=== PATIENT | female | born 1940 | race Caucasian/White ===

== ENCOUNTER 2020-12-19 11:03 | Day surgery (SDC) | payer MEDICARE ==
[~2020-12-19] VITALS: Ht 162.6 cm; Wt 89.4 kg
[2020-12-19] VITALS (9 sets, daily range): BP systolic 91–110; BP diastolic 46–73
[2020-12-19] MEDS ORDERED: normal saline 1,000 ML IV SCH (11:35)
[2020-12-19] MEDS ORDERED: diphenhydrAMINE 25mg capsule PO PRN (11:35)
[2020-12-19] MEDS ORDERED: FURO40TA4 PO (12:09)
[2020-12-19] MEDS ORDERED: ATOR40TA72 PO (12:09)
[2020-12-19] MEDS ORDERED: METF-438 PO (12:09)
[2020-12-19] MEDS ORDERED: FENO145T25 PO (12:09)
[2020-12-19] MEDS ORDERED: METO-395 PO (12:09)
[2020-12-19] MEDS ORDERED: ACAR50TA4 PO (12:09)
[2020-12-19] MEDS ORDERED: PANT40TA54 PO (12:09)
[2020-12-19] MEDS ORDERED: TRAN4TAB25 PO (12:09)
[2020-12-19] MEDS ORDERED: INSU100V9 SUBCUT (12:09)
[2020-12-19] MEDS ORDERED: AMLO5TAB16 PO (12:09)
[2020-12-19] MEDS ORDERED: POTA-197 PO (12:09)
[2020-12-19] MEDS ORDERED: OMEG1CAP13 PO (12:11)
[2020-12-19] MEDS ORDERED: ASPI-1265 PO (12:11)
[2020-12-19 12:43] LABS: BASOPHILS % (AUTO) 0.4 % (0-1); EOSINOPHILS # (AUTO) 0.1 X10'3 (0-0.9); EOSINOPHILS % (AUTO) 1.1 % (0-6); HEMATOCRIT 39.6 % (35.0-45.0); HEMOGLOBIN 13.1 g/dl (12.0-16.0); LYMPHOCYTES # (AUTO) 0.8 X10'3 (1.1-4.8); LYMPHOCYTES % (AUTO) 13.8 % (21-51); MEAN CORPUSCULAR HEMOGLOBIN 30.9 PG (27.0-31.0); MEAN CORPUSCULAR HGB CONC 33.1 g/dL (33.0-36.5); MEAN CORPUSCULAR VOLUME 93.5 FL (78-98); MEAN PLATELET VOLUME 9.4 FL (7.4-10.4); MONOCYTES # (AUTO) 0.4 X10'3 (0-0.9); MONOCYTES % (AUTO) 7.1 % (2-12); NEUTROPHILS # (AUTO) 4.5 X10'3 (1.8-7.7); NEUTROPHILS % (AUTO) 77.6 % (42-75); PLATELET COUNT 224 X10'3 (140-440); RED BLOOD COUNT 4.24 X10'6 (4.20-5.60); RED CELL DISTRIBUTION WIDTH 14.1 % (11.5-14.5); WHITE BLOOD COUNT 5.8 X10'3 (4.5-11.0)
[2020-12-19 13:02] LABS: ALBUMIN 3.1 G/DL (3.4-5.0); ANION GAP 10 (8-16); BLOOD UREA NITROGEN 21 MG/DL (7-18); BUN/CREATININE RATIO 18.1 (6.6-38.0); CALCIUM 8.6 MG/DL (8.5-10.1); CHLORIDE 106 MMOL/L (99-107); CREATININE 1.16 MG/DL (0.40-0.90); GLUCOSE 199 MG/DL (70-104); MAGNESIUM 1.3 MG/DL (1.5-2.4); POTASSIUM 4.1 MMOL/L (3.5-5.1); SODIUM 143 MMOL/L (135-145); TOTAL CARBON DIOXIDE 26.9 MMOL/L (24-32); eGFR 45 ML/MIN
[2020-12-19] MEDS ORDERED: LIDOcaine 1% (10mg/ml)w/preservative injection 20ml MDV ONE ×2 (13:53→14:37)
[2020-12-19] MEDS ORDERED: heparin 1,000unit/ml 10ml vial 10 ML ONE (13:53)
[2020-12-19] MEDS ORDERED: fentaNYL/PF 50MCG/1 ML 2ML syringe ONE (13:53)
[2020-12-19] MEDS ORDERED: midazolam 1 mg/ML 2ml injection ONE (13:53)
[2020-12-19] MEDS ORDERED: iohexol 350 MG/ML 50ML vial IV ONE (13:54)
[2020-12-19] MEDS ORDERED: iohexol 350MG/ML 100ml bottle IV ONE (13:54)
[2020-12-19] MEDS ORDERED: diphenhydrAMINE 50 mg/ml inj ONE (14:21)
[2020-12-19] MEDS ORDERED: ondansetron/PF 4mg/2ml inj IV PRN (15:30)
[2020-12-19] MEDS ORDERED: HYDROcodone/acetaminophen 5mg/325mg tablet PO PRN (15:30)
[2020-12-19] MEDS ORDERED: proCHLORperazine 10 MG/2 ml inj IV PRN (15:30)
[2020-12-19] MEDS ORDERED: HYDROcodone/acetaminophen 10/325mg tab PO PRN (15:30)
[2020-12-19] MEDS ORDERED: normal saline 1000ml 1,000 ML IV SCH (15:30)
[2020-12-19] MEDS ORDERED: acetaminophen 325mg tablet PO PRN (15:30)
== END 2020-12-19 18:25 | disposition home or self-care (01) ==
LOC: SSTAY O 11:03
PROVIDERS: ATTEND Internal Medicine Cardiovascular Disease
DX: R53.83 Other fatigue (principal); R07.89 Other chest pain; R06.09 Other forms of dyspnea; E78.5 Hyperlipidemia, unspecified; I10 Essential (primary) hypertension; E11.9 Type 2 diabetes mellitus without complications; I42.9 Cardiomyopathy, unspecified; F17.210 Nicotine dependence, cigarettes, uncomplicated; Z98.890 Other specified postprocedural states; Z90.710 Acquired absence of both cervix and uterus; Z95.0 Presence of cardiac pacemaker; Z79.82 Long term (current) use of aspirin; Z79.899 Other long term (current) drug therapy; Z79.4 Long term (current) use of insulin; Z88.5 Allergy status to narcotic agent
CPT/HCPCS: 36415; 80048; 82948; 83735; 85025; 85610; 93005; 93458; 99152; 99153; C1760; C1769; C1894; J1200; J1644; J2001; J2250; J3010; J7030; Q0163; Q9967; A4620; A6258

== ENCOUNTER 2020-12-30 08:12 | Day surgery (SDC) | payer MEDICARE ==
[2020-12-30] VITALS (10 sets, daily range): BP systolic 79–101; BP diastolic 49–63
[~2020-12-30] VITALS: Ht 165.1 cm; Wt 91.2 kg
[~2020-12-30 08:12] MED LIST: ACAR50TA4 PO; AMLO5TAB16 PO; ASPI-1265 PO; ATOR40TA72 PO; FENO145T25 PO; FURO40TA4 PO; INSU100V9 SUBCUT; METF-438 PO; METO-395 PO; OMEG1CAP13 PO; PANT40TA54 PO; POTA-197 PO; TRAN4TAB25 PO
[2020-12-30] MEDS ORDERED: vancomycin/NS 1 GM ADD-VANTAGE 250 ML X 1 DOSE IV ONE (08:45)
[2020-12-30] MEDS ORDERED: normal saline 1000ml 1,000 ML IV SCH (08:45)
[2020-12-30] MEDS ORDERED: cefazolin/dext.iso 2gm/100ml 100 ML IV ONE (08:45)
[2020-12-30] MEDS ORDERED: ACAR100T PO (08:56)
[2020-12-30] MEDS ORDERED: CHOL10006 PO (08:56)
[2020-12-30] MEDS ORDERED: METF-950 PO (08:58)
[2020-12-30 10:01] LABS: BASOPHILS # (AUTO) 0.1 X10'3 (0-0.2); BASOPHILS % (AUTO) 0.7 % (0-1); EOSINOPHILS # (AUTO) 0.1 X10'3 (0-0.9); EOSINOPHILS % (AUTO) 1.4 % (0-6); HEMATOCRIT 36.1 % (35.0-45.0); HEMOGLOBIN 11.8 g/dl (12.0-16.0); LYMPHOCYTES % (AUTO) 13.8 % (21-51); MEAN CORPUSCULAR HEMOGLOBIN 30.7 PG (27.0-31.0); MEAN CORPUSCULAR HGB CONC 32.5 g/dL (33.0-36.5); MEAN CORPUSCULAR VOLUME 94.5 FL (78-98); MONOCYTES # (AUTO) 0.5 X10'3 (0-0.9); MONOCYTES % (AUTO) 6.6 % (2-12); NEUTROPHILS # (AUTO) 5.8 X10'3 (1.8-7.7); NEUTROPHILS % (AUTO) 77.5 % (42-75); PLATELET COUNT 401 X10'3 (140-440); RED BLOOD COUNT 3.82 X10'6 (4.20-5.60); RED CELL DISTRIBUTION WIDTH 14.3 % (11.5-14.5); WHITE BLOOD COUNT 7.5 X10'3 (4.5-11.0)
[2020-12-30 10:08] LABS: ALBUMIN 2.9 G/DL (3.4-5.0); ANION GAP 6 (8-16); BLOOD UREA NITROGEN 22 MG/DL (7-18); CALCIUM 8.4 MG/DL (8.5-10.1); CHLORIDE 107 MMOL/L (99-107); CREATININE 1.22 MG/DL (0.40-0.90); GLUCOSE 78 MG/DL (70-104); MAGNESIUM 1.3 MG/DL (1.5-2.4); POTASSIUM 4.6 MMOL/L (3.5-5.1); SODIUM 143 MMOL/L (135-145); TOTAL CARBON DIOXIDE 29.7 MMOL/L (24-32); eGFR 43 ML/MIN
[2020-12-30] MEDS ORDERED: vancomycin 1,000mg inj ONE (11:21)
[2020-12-30] MEDS ORDERED: fentaNYL/PF 50MCG/1 ML 2ML syringe ONE (11:21)
[2020-12-30] MEDS ORDERED: midazolam 1 mg/ML 2ml injection ONE ×2 (11:21→13:39)
[2020-12-30] MEDS ORDERED: LIDOcaine 1% W/epiNEPHrine 1:100,000 20ml vial ONE (12:07)
[2020-12-30] MEDS ORDERED: iohexol 350 MG/ML 50ML vial IV ONE ×3 (12:15→13:10)
[2020-12-30] MEDS ORDERED: magnesium 1 GM/2 ML inj ONE (12:20)
[2020-12-30] MEDS ORDERED: HYDROcodone/acetaminophen 5mg/325mg tablet PO PRN (15:00)
[2020-12-30] MEDS ORDERED: HYDROcodone/acetaminophen 10/325mg tab PO PRN (15:00)
== END 2020-12-30 17:00 | disposition home or self-care (01) ==
LOC: SSTAY O 08:12
PROVIDERS: ATTEND Internal Medicine Cardiovascular Disease
DX: Z45.02 Encounter for adjustment and management of automatic implantable cardiac defibrillator (principal); T82.120A Displacement of cardiac electrode, initial encounter; I44.7 Left bundle-branch block, unspecified; I42.9 Cardiomyopathy, unspecified; E11.9 Type 2 diabetes mellitus without complications; I10 Essential (primary) hypertension; E78.5 Hyperlipidemia, unspecified; Z90.710 Acquired absence of both cervix and uterus; Z98.890 Other specified postprocedural states; Z79.899 Other long term (current) drug therapy; Z79.82 Long term (current) use of aspirin; Z88.2 Allergy status to sulfonamides; Z88.5 Allergy status to narcotic agent; Z87.891 Personal history of nicotine dependence; Y83.8 Other surgical procedures as the cause of abnormal reaction of the patient, or of later complication, without mention of misadventure at the time of the procedure; Y92.89 Other specified places as the place of occurrence of the external cause
CPT/HCPCS: 33225; 33264; 36415; 71045; 80048; 83735; 85025; 85610; 93005; 99152; 99153; C1769; C1882; C1887; C1894; C1900; J2250; J3010; J3370; J3475; J7030; Q9967; 33263; A4565; A4620; A6258

== ENCOUNTER 2021-01-29 09:41 | Emergency (ER) | payer MEDICARE ==
[~2021-01-29] VITALS: Ht 165.1 cm; Wt 90.9 kg
[~2021-01-29 09:41] MED LIST changes: +ACAR100T PO; -ACAR50TA4 PO; -AMLO5TAB16 PO; +CHOL10006 PO; +METF-950 PO
[2021-01-29 10:09] VITALS: BP 105/63
[2021-01-29] MEDS ORDERED: AZIT250T PO (11:40)
== END 2021-01-29 12:11 | disposition home or self-care (01) ==
LOC: ER 09:42
DX: J44.1 Chronic obstructive pulmonary disease with (acute) exacerbation (principal); F17.210 Nicotine dependence, cigarettes, uncomplicated; Z88.5 Allergy status to narcotic agent; Z79.899 Other long term (current) drug therapy; Z20.822 Contact with and (suspected) exposure to COVID-19
CPT/HCPCS: 71045; 87635; 93005; 99285; C9803

== ENCOUNTER 2021-02-21 05:04 | Inpatient (IN) | payer MEDICARE ==
[~2021-02-21] VITALS: Ht 170.2 cm; Wt 103.9 kg
[~2021-02-21 05:04] MED LIST changes: +AZIT250T PO; +METF-1203 PO; -METF-950 PO
[2021-02-21] MEDS ORDERED: FENTANYL-0.9 % NACL/PF 100 ML IV PRN (05:20)
[2021-02-21] MEDS ORDERED: propofol 1000mg/100ml bottle 100 ML IV SCH (05:20)
[2021-02-21] MEDS ORDERED: fentaNYL/PF 50MCG/1 ML 2ML syringe IV PRN (05:20)
[2021-02-21 05:24] LABS: ABG BASE EXCESS -8.1 mmol/L (-2.0-2.0); ABG HCO3 24.4 mmol/L (22.0-26.0); ABG OXYGEN SATURATION 89.3 % (94-97); ABG PCO2 (T) 88.4 mmHg (32.0-45.0); ABG PO2 (T) 74.7 mmHg (75.0-100.0); ALLEN'S TEST POSITIVE; FCOHb 2.1 % (0.0-3.9); FMetHb 0.1 % (0.0-1.5); FO2Hb 87.3 % (94-97); PATIENT TEMPERATURE 36.1; PEEP 5 cm H2O; RESPIRATORY RATE 20 b/min; TIDAL VOLUME 450 mL; TOTAL HEMOGLOBIN 13.2 G/dl (12.0-16.0)
[2021-02-21] MEDS ORDERED: propofol 1000mg/100ml bottle 100 ML IV ONE (05:25)
--- NOTE | 2021-02-21 05:26 | NUR ---
pt intubated with 20mg etomidate, 80mg rocuronium @ 0508. mac 3 via ETT 8.0, 25cm at gum. OG placed as well, cxr ordered. central line started by dr sparks.
[2021-02-21 05:37] LABS: BASOPHILS # (AUTO) 0.1 X10'3 (0-0.2); BASOPHILS % (AUTO) 0.6 % (0-1); EOSINOPHILS # (AUTO) 0.2 X10'3 (0-0.9); EOSINOPHILS % (AUTO) 1.9 % (0-6); HEMATOCRIT 39.8 % (35.0-45.0); HEMOGLOBIN 12.5 g/dl (12.0-16.0); LYMPHOCYTES # (AUTO) 4.9 X10'3 (1.1-4.8); MEAN CORPUSCULAR HEMOGLOBIN 30.6 PG (27.0-31.0); MEAN CORPUSCULAR HGB CONC 31.4 g/dL (33.0-36.5); MEAN CORPUSCULAR VOLUME 97.5 FL (78-98); MEAN PLATELET VOLUME 9.5 FL (7.4-10.4); MONOCYTES # (AUTO) 0.8 X10'3 (0-0.9); MONOCYTES % (AUTO) 6.8 % (2-12); NEUTROPHILS # (AUTO) 5.6 X10'3 (1.8-7.7); NEUTROPHILS % (AUTO) 48.7 % (42-75); PLATELET COUNT 363 X10'3 (140-440); RED BLOOD COUNT 4.08 X10'6 (4.20-5.60); RED CELL DISTRIBUTION WIDTH 14.9 % (11.5-14.5); WHITE BLOOD COUNT 11.6 X10'3 (4.5-11.0)
[2021-02-21] MEDS ORDERED: normal saline 1000ml 1,000 ML IV ONE (05:40)
[2021-02-21 05:48] LABS: ALANINE AMINOTRANSFERASE 23 U/L (12-78); ALBUMIN/GLOBULIN RATIO 0.8 (1.1-1.5); ALKALINE PHOSPHATASE 48 IU/L (46-116); ANION GAP 8 (8-16); ASPARTATE AMINO TRANSFERASE 32 U/L (10-37); BILIRUBIN,TOTAL 0.2 MG/DL (0.1-1.0); BLOOD UREA NITROGEN 29 MG/DL (7-18); CALCIUM 8.4 MG/DL (8.5-10.1); CHLORIDE 107 MMOL/L (99-107); CREATININE 1.71 MG/DL (0.40-0.90); GLUCOSE 296 MG/DL (70-104); POTASSIUM 4.6 MMOL/L (3.5-5.1); SODIUM 144 MMOL/L (135-145); TOTAL CARBON DIOXIDE 29.5 MMOL/L (24-32); TOTAL PROTEIN 6.6 G/DL (6.4-8.2); eGFR 29 ML/MIN
[2021-02-21] MEDS ORDERED: ipratropium/albuterol 3ml nebule NEB STA (05:52)
[2021-02-21 05:55] LABS: TRIGLYCERIDES 149 MG/DL (20-135)
[2021-02-21] MEDS: FENTANYL-0.9 % NACL/PF 100 ML IV PRN ×4 (06:22→22:56)
[2021-02-21] MEDS ORDERED: furosemide 10 MG/1 ML 10ml inj IV ONE (06:30)
[2021-02-21] MEDS ORDERED: NOREPINEPHRINE BITARTRATE/D5W 250 ML IV PRN (06:35)
[2021-02-21] MEDS ORDERED: midazolam 1 mg/ML 2ml injection IV ONE (06:55)
[2021-02-21] MEDS ORDERED: ketamine 50 mg/ml 10ml vial ONE (07:10)
[2021-02-21] MEDS ORDERED: CefTRIAXone/D5W-Rocephin 1gm 50 ML IV ONE (07:20)
[2021-02-21] MEDS: NORepinephrine 8mg/ 250ml NS 250 ML IV PRN ×4 (07:27→22:54)
[2021-02-21] MEDS ORDERED: ketamine 50 mg/ml 10ml vial IM ONE (07:55)
[2021-02-21] MEDS: midazolam 100mg in NS 100ml 100 ML IV PRN ×2 (09:14→23:31)
--- NOTE | 2021-02-21 10:11 | NUR ---
Jory (Pt's Daughter) [phone] Sarah (Pt's Daughter) [phone] Pt's daughter would like to be informed, when mother has a bed upstairs.
[2021-02-21] MEDS ORDERED: aspirin 300mg supp.rect RC ONE (10:35)
[2021-02-21] MEDS: normal saline 1000ml 1,000 ML IV SCH (11:50)
[2021-02-21] MEDS ORDERED: potassium Cl 20 mEq SR tablet PO PRN ×2 (11:50)
[2021-02-21] MEDS: K, MAG and/or Phos replacement - Verify level? MC SCH (11:50)
[2021-02-21] MEDS ORDERED: Neutra Phos packet PO PRN (11:50)
[2021-02-21] MEDS ORDERED: sodium phosphate inj. 30 MMOL in dextrose 5%-water 250 ML IV PRN (11:50)
[2021-02-21] MEDS ORDERED: sodium phosphate inj. 15 MMOL in dextrose 5%-water 250 ML IV PRN (11:50)
[2021-02-21] MEDS ORDERED: ondansetron/PF 4mg/2ml inj IV PRN (11:50)
[2021-02-21] MEDS ORDERED: magnesium hydroxide 30ml (MOM) UD suspension PO PRN (11:50)
[2021-02-21] MEDS ORDERED: LIDOcaine 2% 10ml TOPICAL JELLY (Urojet) TP ONE (11:50)
[2021-02-21] MEDS ORDERED: magnesium Cl slow-release 64mg tablet PO PRN (11:50)
[2021-02-21] MEDS ORDERED: magnesium 2GM in 50ml NS 50 ML IV PRN (11:50)
[2021-02-21] MEDS ORDERED: heparin 10,000 units/1 ML INJ IV PRN (12:20)
[2021-02-21] MEDS ORDERED: heparin 10,000 units/1 ML INJ IV ONE ×2 (12:20→12:25)
[2021-02-21] MEDS: heparin 25,000 UNIT/250ml bag 250 ML IV SCH ×2 (12:38→20:45)
[2021-02-21 12:48] LABS: HEMATOCRIT 35.7 % (35.0-45.0); MEAN CORPUSCULAR HEMOGLOBIN 30.6 PG (27.0-31.0)
[2021-02-21] MEDS ORDERED: FLUT1BLS16 INH (12:48)
[2021-02-21] MEDS ORDERED: IPRA3AMP31 NEB (12:48)
[2021-02-21 12:50] LABS: BASOPHILS % (AUTO) 0.2 % (0-1); EOSINOPHILS % (AUTO) 0.1 % (0-6); HEMOGLOBIN 11.8 g/dl (12.0-16.0); LYMPHOCYTES % (AUTO) 9.3 % (21-51); MEAN CORPUSCULAR VOLUME 92.6 FL (78-98); MEAN PLATELET VOLUME 8.9 FL (7.4-10.4); MONOCYTES # (AUTO) 0.7 X10'3 (0-0.9); MONOCYTES % (AUTO) 6.6 % (2-12); NEUTROPHILS # (AUTO) 9.2 X10'3 (1.8-7.7); NEUTROPHILS % (AUTO) 83.8 % (42-75); PLATELET COUNT 356 X10'3 (140-440); RED BLOOD COUNT 3.86 X10'6 (4.20-5.60); RED CELL DISTRIBUTION WIDTH 14.2 % (11.5-14.5)
[2021-02-21 13:36] LABS: D-DIMER 2.36 MG/L FEU (0-0.50); PARTIAL THROMBOPLASTIN TIME 24 SECONDS (22-32)
[2021-02-21] MEDS: ipratropium/albuterol 3ml nebule NEB PRN (14:44)
[2021-02-21 15:05] LABS: ABG BASE EXCESS -0.2 mmol/L (-2.0-2.0); ABG HCO3 24.4 mmol/L (22.0-26.0); ABG OXYGEN SATURATION 92.7 % (94-97); ABG PCO2 (T) 41.1 mmHg (32.0-45.0); ABG PO2 (T) 67.8 mmHg (75.0-100.0); ALLEN'S TEST POSITIVE; FCOHb 0.4 % (0.0-3.9); FMetHb 0.1 % (0.0-1.5); FO2Hb 92.2 % (94-97); PATIENT TEMPERATURE 37.7; PEEP 5 cm H2O; RESPIRATORY RATE 22 b/min; TIDAL VOLUME 474 mL; TOTAL HEMOGLOBIN 11.8 G/dl (12.0-16.0)
[2021-02-21] MEDS: vasopressin inj. 40 UNIT in normal saline 50ml IV soln 38 ML IV SCH (15:15)
[2021-02-21] MEDS ORDERED: albumin (Human) 5% 250ml 250 ML IV ONE (15:15)
[2021-02-21] MEDS ORDERED: PERFLUTREN PROTEIN-A MICROSPHR (Optison) 0.22 MG/ML 3ML VIAL IV ONE (15:20)
[2021-02-21] MEDS ORDERED: vancomycin/NS 1 GM ADD-VANTAGE 250 ML IV ONE (15:55)
[2021-02-21] MEDS ORDERED: vancomycin/NS 1 GM ADD-VANTAGE 250 ML X 1 DOSE IV PRN (16:00)
[2021-02-21] MEDS ORDERED: furosemide 20 MG/2 ML vial IV ONE ×2 (17:00→21:00)
[2021-02-21] MEDS ORDERED: rocuronium 10mg/ml inj IV ONE (17:00)
[2021-02-21] MEDS ORDERED: etomidate 2mg/ml inj. ONE (17:00)
[2021-02-21] MEDS: piperacillin/tazo 3.375gm/50ml 50 ML IV SCH (17:36)
[2021-02-21 17:54] VITALS: BP 115/75
--- NOTE | 2021-02-21 18:30 | NUR ---
Patient in room ICU 2043. I have received report from Darian STATON and had the opportunity to ask questions and assume patient care.
[2021-02-21 19:00] VITALS: BP 117/76
[2021-02-21 20:00] VITALS: BP 98/65
[2021-02-21] MEDS: docusate sod 100mg capsule PO SCH (20:46)
[2021-02-21] MEDS: sennosides/docusate sodium tablet PO SCH (20:48)
[2021-02-21 21:00] VITALS: BP 118/73
[2021-02-21 22:00] VITALS: BP 115/62
[2021-02-21 23:00] VITALS: BP 87/55
[2021-02-21] MEDS: acetaminophen 325mg tablet PO PRN (23:58)
[2021-02-22] VITALS (23 sets, daily range): BP systolic 87–114; BP diastolic 50–80
[2021-02-22] MEDS: piperacillin/tazo 3.375gm/50ml 50 ML IV SCH ×3 (00:19→15:46)
[2021-02-22] MEDS: phenylephrine inj 50 MG in normal saline 250ml IV soln 245 ML IV PRN ×2 (00:19→04:09)
[2021-02-22] MEDS: NORepinephrine 8mg/ 250ml NS 250 ML IV PRN ×2 (00:35→19:57)
[2021-02-22] MEDS: normal saline 1000ml 1,000 ML IV SCH ×2 (01:32→15:15)
[2021-02-22] MEDS: VANCOMYCIN LEVEL IV SCH (03:00)
[2021-02-22 03:11] LABS: BASOPHILS # (AUTO) 0.1 X10'3 (0-0.2); BASOPHILS % (AUTO) 0.9 % (0-1); EOSINOPHILS # (AUTO) 0.1 X10'3 (0-0.9); HEMATOCRIT 35.8 % (35.0-45.0); LYMPHOCYTES # (AUTO) 0.6 X10'3 (1.1-4.8); LYMPHOCYTES % (AUTO) 5.2 % (21-51); MEAN CORPUSCULAR HEMOGLOBIN 30.8 PG (27.0-31.0); MEAN CORPUSCULAR HGB CONC 33.6 g/dL (33.0-36.5); MEAN CORPUSCULAR VOLUME 91.6 FL (78-98); MEAN PLATELET VOLUME 9.1 FL (7.4-10.4); MONOCYTES % (AUTO) 8.3 % (2-12); NEUTROPHILS # (AUTO) 10.4 X10'3 (1.8-7.7); NEUTROPHILS % (AUTO) 84.6 % (42-75); PLATELET COUNT 277 X10'3 (140-440); RED BLOOD COUNT 3.91 X10'6 (4.20-5.60); RED CELL DISTRIBUTION WIDTH 14.3 % (11.5-14.5); WHITE BLOOD COUNT 12.3 X10'3 (4.5-11.0)
[2021-02-22 03:15] LABS: ABG BASE EXCESS -3.2 mmol/L (-2.0-2.0); ABG HCO3 21.4 mmol/L (22.0-26.0); ABG OXYGEN SATURATION 94.8 % (94-97); ABG PCO2 (T) 39.5 mmHg (32.0-45.0); ABG PO2 (T) 83.8 mmHg (75.0-100.0); ALLEN'S TEST POSITIVE; FCOHb 0.2 % (0.0-3.9); FMetHb 0.2 % (0.0-1.5); FO2Hb 94.4 % (94-97); PATIENT TEMPERATURE 38.7; PEEP 5 cm H2O; RESPIRATORY RATE 22 b/min; TIDAL VOLUME 450 mL; TOTAL HEMOGLOBIN 12.6 G/dl (12.0-16.0)
[2021-02-22 03:23] LABS: ALANINE AMINOTRANSFERASE 30 U/L (12-78); ALBUMIN 2.6 G/DL (3.4-5.0); ALBUMIN/GLOBULIN RATIO 0.7 (1.1-1.5); ALKALINE PHOSPHATASE 41 IU/L (46-116); ANION GAP 16 (8-16); ASPARTATE AMINO TRANSFERASE 41 U/L (10-37); BILIRUBIN,TOTAL 0.5 MG/DL (0.1-1.0); BLOOD UREA NITROGEN 30 MG/DL (7-18); CALCIUM 7.7 MG/DL (8.5-10.1); CHLORIDE 106 MMOL/L (99-107); GLUCOSE 213 MG/DL (70-104); MAGNESIUM 1.5 MG/DL (1.5-2.4); PHOSPHORUS 4.3 MG/DL (2.3-4.5); POTASSIUM 4.3 MMOL/L (3.5-5.1); SODIUM 145 MMOL/L (135-145); TOTAL PROTEIN 6.2 G/DL (6.4-8.2); TRIGLYCERIDES 123 MG/DL (20-135); VANCOMYCIN,TROUGH 9.3 UG/ML (6.0-14.0); eGFR 34 ML/MIN
[2021-02-22] MEDS ORDERED: glucagon, human recombinant 1mg kit SUBCUT PRN (05:00)
[2021-02-22] MEDS ORDERED: dextrose ORAL solution 15 GM/59 ML bottle PO PRN ×2 (05:00)
[2021-02-22] MEDS ORDERED: dextrose 50%-water 50ml dispensing syringe IV PRN ×2 (05:00)
--- NOTE | 2021-02-22 06:23 | NUR ---
Problems reprioritized. Patient report given, questions answered & plan of care reviewed with Darian STATON.
[2021-02-22] MEDS: FENTANYL-0.9 % NACL/PF 100 ML IV PRN (07:08)
[2021-02-22] MEDS: pantoprazole 40 MG vial IV SCH (07:32)
[2021-02-22] MEDS: heparin, porcine 5000 units/ml vial SQ SCH ×2 (07:32→19:54)
[2021-02-22] MEDS: docusate sod 100mg capsule PO SCH (07:35)
[2021-02-22] MEDS: K, MAG and/or Phos replacement - Verify level? MC SCH (07:36)
[2021-02-22] MEDS: mineral oil/petrolatum ophthal oint EACHEYE SCH ×3 (07:40→19:55)
[2021-02-22] MEDS ORDERED: vancomycin/NS 1 GM ADD-VANTAGE 250 ML X 1 DOSE IV ONE (07:50)
[2021-02-22] MEDS: ipratropium/albuterol 3ml nebule NEB PRN ×3 (07:51→16:49)
[2021-02-22] MEDS ORDERED: PERFLUTREN PROTEIN-A MICROSPHR (Optison) 0.22 MG/ML 3ML VIAL IV ONE (08:00)
[2021-02-22] MEDS: docusate sodium 100mg/10ml UD cup PO SCH ×2 (08:36→19:54)
[2021-02-22] MEDS ORDERED: FLU VACC QS2021-22(6MOS UP)/PF 60 MCG/0.5 ML SYRINGE IM ONE (09:00)
[2021-02-22] MEDS ORDERED: bumetanide 0.25mg/ml 4ml vial IV ONE (10:00)
[2021-02-22] MEDS: vasopressin inj. 40 UNIT in normal saline 50ml IV soln 38 ML IV SCH (10:33)
[2021-02-22] MEDS: albumin (human) 25% 100 ML IV solution IV SCH ×2 (11:00→15:47)
[2021-02-22] MEDS: furosemide 40mg/4ml inj IV SCH ×2 (11:42→16:21)
--- NOTE | 2021-02-22 11:54 | NUR ---
Initial: Pt admitted w/ respiratory failure and subsequently intubated and sedated. TF recs below for it pt requires prolonged intubation. IF pt extubated, recommend CCHO diet as pt w/ hx of DM and admitting BG 296mg/dL LBM not known. Will continue to monitor and make recommendations as appropriate. Recs: 1. IF prolonged intubation, Continuous TF using Vital High Protein at 65ml/hr 2. IF TF, Additional water flush 100ml Q4H 3. IF TF, PALB QM/Th; daily wts 4. Routine bowel care 5. Upon extubation, advance to CCHO diet as tolerated Addendum: 02/22/21 at [address] Amended: Links added.
[2021-02-22] MEDS ORDERED: albumin (Human) 5% 250ml 250 ML IV ONE ×2 (16:36→16:40)
[2021-02-22] MEDS: bumetanide 0.25mg/ml 4ml vial IV SCH (19:55)
[2021-02-22] MEDS: insulin Lispro (HumaLOG) vial - multi-dose SQ SCH (20:02)
[2021-02-22] MEDS: insulin glargine (Lantus) pen - multi-dose SQ SCH (20:03)
[2021-02-22] MEDS: sennosides/docusate sodium tablet PO SCH (20:04)
[2021-02-22] MEDS: acetaminophen 325mg tablet PO PRN (22:55)
[2021-02-23] VITALS (24 sets, daily range): BP systolic 91–124; BP diastolic 61–86
[2021-02-23] MEDS: piperacillin/tazo 3.375gm/50ml 50 ML IV SCH ×4 (00:06→23:43)
[2021-02-23] MEDS: vasopressin inj. 40 UNIT in normal saline 50ml IV soln 38 ML IV SCH (00:09)
[2021-02-23] MEDS: FENTANYL-0.9 % NACL/PF 100 ML IV PRN ×4 (00:11→23:43)
[2021-02-23] MEDS: mineral oil/petrolatum ophthal oint EACHEYE SCH ×4 (02:49→20:02)
[2021-02-23] MEDS: VANCOMYCIN LEVEL IV SCH (02:49)
[2021-02-23] MEDS: NORepinephrine 8mg/ 250ml NS 250 ML IV PRN ×4 (02:50→17:25)
[2021-02-23] MEDS: midazolam 100mg in NS 100ml 100 ML IV PRN (02:50)
[2021-02-23] MEDS: phenylephrine inj 50 MG in normal saline 250ml IV soln 245 ML IV PRN (02:51)
[2021-02-23] MEDS: insulin Lispro (HumaLOG) vial - multi-dose SQ SCH ×4 (02:59→20:18)
[2021-02-23] MEDS: normal saline 1000ml 1,000 ML IV SCH ×2 (03:45→17:10)
[2021-02-23 04:08] LABS: ABG BASE EXCESS -0.6 mmol/L (-2.0-2.0); ABG HCO3 24.6 mmol/L (22.0-26.0); ABG OXYGEN SATURATION 93.1 % (94-97); ABG PCO2 (T) 44.8 mmHg (32.0-45.0); ABG PO2 (T) 74.9 mmHg (75.0-100.0); ALLEN'S TEST POSITIVE; FCOHb 0.3 % (0.0-3.9); FMetHb 0.4 % (0.0-1.5); FO2Hb 92.4 % (94-97); PATIENT TEMPERATURE 37.9; PEEP 5 cm H2O; RESPIRATORY RATE 20 b/min; TIDAL VOLUME 450 mL; TOTAL HEMOGLOBIN 11.6 G/dl (12.0-16.0)
[2021-02-23 04:11] LABS: BASOPHILS % (AUTO) 0.5 % (0-1); EOSINOPHILS % (AUTO) 0.6 % (0-6); HEMATOCRIT 33.6 % (35.0-45.0); LYMPHOCYTES # (AUTO) 0.9 X10'3 (1.1-4.8); LYMPHOCYTES % (AUTO) 10.2 % (21-51); MEAN CORPUSCULAR HEMOGLOBIN 30.4 PG (27.0-31.0); MEAN CORPUSCULAR HGB CONC 32.7 g/dL (33.0-36.5); MEAN CORPUSCULAR VOLUME 93.1 FL (78-98); MEAN PLATELET VOLUME 9.8 FL (7.4-10.4); MONOCYTES # (AUTO) 0.7 X10'3 (0-0.9); MONOCYTES % (AUTO) 8.3 % (2-12); NEUTROPHILS % (AUTO) 80.4 % (42-75); PLATELET COUNT 215 X10'3 (140-440); RED BLOOD COUNT 3.61 X10'6 (4.20-5.60); RED CELL DISTRIBUTION WIDTH 14.2 % (11.5-14.5); WHITE BLOOD COUNT 8.7 X10'3 (4.5-11.0)
[2021-02-23 04:24] LABS: ALANINE AMINOTRANSFERASE 32 U/L (12-78); ALKALINE PHOSPHATASE 38 IU/L (46-116); ANION GAP 13 (8-16); ASPARTATE AMINO TRANSFERASE 33 U/L (10-37); BILIRUBIN,TOTAL 0.8 MG/DL (0.1-1.0); BLOOD UREA NITROGEN 25 MG/DL (7-18); BUN/CREATININE RATIO 16.6 (6.6-38.0); CALCIUM 8.2 MG/DL (8.5-10.1); CHLORIDE 110 MMOL/L (99-107); CREATININE 1.51 MG/DL (0.40-0.90); GLUCOSE 225 MG/DL (70-104); MAGNESIUM 1.6 MG/DL (1.5-2.4); PHOSPHORUS 3.5 MG/DL (2.3-4.5); POTASSIUM 3.4 MMOL/L (3.5-5.1); SODIUM 149 MMOL/L (135-145); TOTAL CARBON DIOXIDE 26.5 MMOL/L (24-32); TOTAL PROTEIN 6.1 G/DL (6.4-8.2); VANCOMYCIN,TROUGH 9.6 UG/ML (6.0-14.0); eGFR 33 ML/MIN
[2021-02-23 05:02] LABS: PARTIAL THROMBOPLASTIN TIME 30 SECONDS (22-32)
[2021-02-23] MEDS: ipratropium/albuterol 3ml nebule NEB PRN ×2 (07:51→14:46)
[2021-02-23] MEDS: K, MAG and/or Phos replacement - Verify level? MC SCH (08:00)
[2021-02-23] MEDS: potassium Cl 40MEQ/250ML bag 270 ML IV PRN ×2 (08:41→14:20)
[2021-02-23] MEDS: albumin (human) 25% 100 ML IV solution IV SCH ×4 (08:43→23:40)
[2021-02-23] MEDS: heparin, porcine 5000 units/ml vial SQ SCH ×2 (08:44→20:02)
[2021-02-23] MEDS: docusate sodium 100mg/10ml UD cup PO SCH ×2 (08:44→20:02)
[2021-02-23] MEDS: furosemide 40mg/4ml inj IV SCH ×5 (08:45→23:43)
[2021-02-23] MEDS: bumetanide 0.25mg/ml 4ml vial IV SCH (08:45)
[2021-02-23] MEDS: pantoprazole 40 MG vial IV SCH (08:45)
[2021-02-23] MEDS: magnesium 4gm in 100ml NS 100 ML IV PRN ×2 (11:09→12:50)
[2021-02-23] MEDS: vancomycin/NS 1 GM ADD-VANTAGE 250 ML X 1 DOSE IV SCH (11:09)
--- NOTE | 2021-02-23 12:20 | NUR ---
TF consult: Pt remains intubated, see recs below. Initial: Pt admitted w/ respiratory failure and subsequently intubated and sedated. TF recs below for it pt requires prolonged intubation. IF pt extubated, recommend CCHO diet as pt w/ hx of DM and admitting BG 296mg/dL LBM not known. Will continue to monitor and make recommendations as appropriate. Recs: 1. Continuous TF using Vital High Protein at 65ml/hr providing 1560ml volume, 1560kcals, 136g protein, 1310ml free water 2. Additional water flush 100ml Q4H 3. PALB QM/Th; daily wts 4. Routine bowel care 5. Upon extubation, advance to CCHO diet as tolerated Addendum: 02/23/21 at [address] Amended: Links added.
[2021-02-23 13:29] LABS: PREALBUMIN 14.3 MG/DL (19-36)
[2021-02-23] MEDS: sennosides/docusate sodium tablet PO SCH (20:01)
[2021-02-23] MEDS: lactobacillus rhamnosus 10,000 MMU CELLS/CAPSULE PO SCH (20:02)
[2021-02-23] MEDS: insulin glargine (Lantus) pen - multi-dose SQ SCH (20:06)
[2021-02-23] MEDS: ipratropium/albuterol 3ml nebule NEB SCH ×2 (20:17→23:12)
[2021-02-24] VITALS (22 sets, daily range): BP systolic 87–113; BP diastolic 54–77
[2021-02-24] MEDS: mineral oil/petrolatum ophthal oint EACHEYE SCH ×4 (01:36→20:31)
[2021-02-24] MEDS: insulin Lispro (HumaLOG) vial - multi-dose SQ SCH (02:26)
[2021-02-24 02:53] LABS: BASOPHILS % (AUTO) 0.4 % (0-1); EOSINOPHILS % (AUTO) 0.7 % (0-6); HEMATOCRIT 29.3 % (35.0-45.0); HEMOGLOBIN 9.8 g/dl (12.0-16.0); LYMPHOCYTES # (AUTO) 0.5 X10'3 (1.1-4.8); LYMPHOCYTES % (AUTO) 7.8 % (21-51); MEAN CORPUSCULAR HEMOGLOBIN 31.3 PG (27.0-31.0); MEAN CORPUSCULAR HGB CONC 33.5 g/dL (33.0-36.5); MEAN CORPUSCULAR VOLUME 93.2 FL (78-98); MEAN PLATELET VOLUME 9.3 FL (7.4-10.4); MONOCYTES # (AUTO) 0.4 X10'3 (0-0.9); MONOCYTES % (AUTO) 5.7 % (2-12); NEUTROPHILS # (AUTO) 5.8 X10'3 (1.8-7.7); NEUTROPHILS % (AUTO) 85.4 % (42-75); PLATELET COUNT 187 X10'3 (140-440); RED BLOOD COUNT 3.15 X10'6 (4.20-5.60); RED CELL DISTRIBUTION WIDTH 13.9 % (11.5-14.5); WHITE BLOOD COUNT 6.7 X10'3 (4.5-11.0)
[2021-02-24 03:06] LABS: PARTIAL THROMBOPLASTIN TIME 30 SECONDS (22-32)
[2021-02-24 03:09] LABS: ALANINE AMINOTRANSFERASE 29 U/L (12-78); ALBUMIN 3.1 G/DL (3.4-5.0); ALKALINE PHOSPHATASE 39 IU/L (46-116); ANION GAP 8 (8-16); ASPARTATE AMINO TRANSFERASE 21 U/L (10-37); BILIRUBIN,TOTAL 0.7 MG/DL (0.1-1.0); BLOOD UREA NITROGEN 23 MG/DL (7-18); BUN/CREATININE RATIO 17.8 (6.6-38.0); CALCIUM 8.4 MG/DL (8.5-10.1); CHLORIDE 114 MMOL/L (99-107); CREATININE 1.29 MG/DL (0.40-0.90); GLUCOSE 213 MG/DL (70-104); MAGNESIUM 2.4 MG/DL (1.5-2.4); PHOSPHORUS 3.3 MG/DL (2.3-4.5); POTASSIUM 3.7 MMOL/L (3.5-5.1); SODIUM 149 MMOL/L (135-145); TOTAL CARBON DIOXIDE 27.2 MMOL/L (24-32); TOTAL PROTEIN 6.1 G/DL (6.4-8.2); eGFR 40 ML/MIN
[2021-02-24] MEDS: ipratropium/albuterol 3ml nebule NEB SCH ×6 (03:19→22:55)
[2021-02-24 03:41] LABS: ABG BASE EXCESS 1.4 mmol/L (-2.0-2.0); ABG HCO3 26.5 mmol/L (22.0-26.0); ABG OXYGEN SATURATION 95.5 % (94-97); ABG PCO2 (T) 42.9 mmHg (32.0-45.0); ALLEN'S TEST Modified; FCOHb 0.3 % (0.0-3.9); FMetHb 0.1 % (0.0-1.5); FO2Hb 95.1 % (94-97); PATIENT TEMPERATURE 36.5; PEEP 5 cm H2O; RESPIRATORY RATE 20 b/min; TIDAL VOLUME 450 mL; TOTAL HEMOGLOBIN 10.5 G/dl (12.0-16.0)
--- NOTE | 2021-02-24 06:16 | NUR ---
Report given to day shift RN.
[2021-02-24] MEDS: normal saline 1000ml 1,000 ML IV SCH ×2 (06:30→20:09)
[2021-02-24] MEDS ORDERED: potassium CL 10mEq/100ml bag 100 ML IV PRN ×2 (06:35→06:40)
[2021-02-24] MEDS ORDERED: potassium Cl 20mEq/100mL bag 100 ML IV PRN ×2 (06:35→06:40)
[2021-02-24] MEDS ORDERED: potassium Cl 40MEQ/250ML bag 250 ML IV PRN ×2 (06:35→06:40)
[2021-02-24] MEDS ORDERED: potassium Cl 40MEQ/1/2NS 520ml 520 ML IV PRN ×2 (06:35→06:40)
[2021-02-24] MEDS ORDERED: magnesium 2GM in 50ml NS 50 ML IV ONE (06:40)
[2021-02-24] MEDS ORDERED: magnesium 4gm in 100ml NS 100 ML IV ONE (06:40)
[2021-02-24] MEDS: furosemide 40mg/4ml inj IV SCH ×3 (08:00→20:09)
[2021-02-24] MEDS: K, MAG and/or Phos replacement - Verify level? MC SCH (08:00)
[2021-02-24] MEDS: docusate sodium 100mg/10ml UD cup PO SCH ×2 (08:00→20:14)
[2021-02-24] MEDS: albumin (human) 25% 100 ML IV solution IV SCH (10:56)
[2021-02-24] MEDS: pantoprazole 40 MG vial IV SCH (10:57)
[2021-02-24] MEDS: piperacillin/tazo 3.375gm/50ml 50 ML IV SCH ×3 (10:57→23:08)
[2021-02-24] MEDS: lactobacillus rhamnosus 10,000 MMU CELLS/CAPSULE PO SCH ×2 (10:58→20:13)
[2021-02-24] MEDS: heparin, porcine 5000 units/ml vial SQ SCH ×2 (10:58→20:14)
[2021-02-24] MEDS ORDERED: magnesium citrate 296ml oral solution PO ONE (11:25)
[2021-02-24] MEDS: Potassium Cl 40 MEQ in normal saline IV soln 270 ML IV SCH ×2 (12:55→15:32)
[2021-02-24] MEDS ORDERED: DOBUTamine-DoBUTrex 500mg/D5W 250 ML IV SCH (13:40)
[2021-02-24] MEDS ORDERED: VANCOMYCIN LEVEL IV ONE (14:30)
[2021-02-24] MEDS: insulin regular, human U-100 3ml vial - multi-dose SQ SCH ×2 (15:06→20:39)
[2021-02-24] MEDS: vancomycin/NS 1 GM ADD-VANTAGE 250 ML X 1 DOSE IV SCH (15:09)
[2021-02-24] MEDS: methylPREDNISolone sod succ 125mg/2ml vial IV SCH ×2 (15:33→23:07)
[2021-02-24] MEDS ORDERED: albumin (Human) 5% 250ml 250 ML IV ONE (16:50)
[2021-02-24] MEDS: acetaminophen 325mg tablet PO PRN (17:29)
[2021-02-24] MEDS: FENTANYL-0.9 % NACL/PF 100 ML IV PRN (17:34)
[2021-02-24] MEDS: vasopressin inj. 40 UNIT in normal saline 50ml IV soln 38 ML IV SCH (17:35)
[2021-02-24] MEDS: NORepinephrine 8mg/ 250ml NS 250 ML IV PRN (18:01)
[2021-02-24] MEDS: sennosides/docusate sodium tablet PO SCH (20:14)
[2021-02-24] MEDS: insulin glargine (Lantus) pen - multi-dose SQ SCH (20:37)
--- NOTE | 2021-02-24 21:00 | NUR ---
Dr Fatima notified about the increasing fiO2 needs on the ventilator and decreasing UO. See orders.
[2021-02-24] MEDS ORDERED: furosemide 40mg/4ml inj IV ONE (22:30)
[2021-02-25] VITALS (20 sets, daily range): BP systolic 79–138; BP diastolic 35–94
[2021-02-25 02:28] LABS: BASOPHILS % (AUTO) 0.2 % (0-1); EOSINOPHILS % (AUTO) 0.1 % (0-6); HEMATOCRIT 30.3 % (35.0-45.0); LYMPHOCYTES # (AUTO) 0.1 X10'3 (1.1-4.8); LYMPHOCYTES % (AUTO) 1.8 % (21-51); MEAN CORPUSCULAR HEMOGLOBIN 30.9 PG (27.0-31.0); MEAN CORPUSCULAR HGB CONC 32.9 g/dL (33.0-36.5); MEAN PLATELET VOLUME 9.8 FL (7.4-10.4); MONOCYTES # (AUTO) 0.1 X10'3 (0-0.9); NEUTROPHILS # (AUTO) 4.4 X10'3 (1.8-7.7); NEUTROPHILS % (AUTO) 94.9 % (42-75); PLATELET COUNT 187 X10'3 (140-440); RED BLOOD COUNT 3.23 X10'6 (4.20-5.60); RED CELL DISTRIBUTION WIDTH 14.5 % (11.5-14.5); WHITE BLOOD COUNT 4.7 X10'3 (4.5-11.0)
[2021-02-25] MEDS: mineral oil/petrolatum ophthal oint EACHEYE SCH ×4 (02:28→20:23)
[2021-02-25] MEDS: insulin regular, human U-100 3ml vial - multi-dose SQ SCH (02:31)
[2021-02-25] MEDS: ipratropium/albuterol 3ml nebule NEB SCH ×6 (02:57→23:20)
[2021-02-25 03:16] LABS: PARTIAL THROMBOPLASTIN TIME 24 SECONDS (22-32)
[2021-02-25 03:16] LABS: ABG BASE EXCESS -2.4 mmol/L (-2.0-2.0); ABG HCO3 23.6 mmol/L (22.0-26.0); ABG OXYGEN SATURATION 92.3 % (94-97); ABG PCO2 (T) 45.7 mmHg (32.0-45.0); ABG PO2 (T) 71.4 mmHg (75.0-100.0); ALLEN'S TEST Modified; FCOHb 0.2 % (0.0-3.9); FMetHb 0.4 % (0.0-1.5); FO2Hb 91.7 % (94-97); PATIENT TEMPERATURE 36.8; PEEP 10 cm H2O; RESPIRATORY RATE 20 b/min; TIDAL VOLUME 450 mL; TOTAL HEMOGLOBIN 10.3 G/dl (12.0-16.0)
[2021-02-25 04:08] LABS: ALBUMIN 2.7 G/DL (3.4-5.0); ALBUMIN/GLOBULIN RATIO 0.9 (1.1-1.5); ALKALINE PHOSPHATASE 166 IU/L (46-116); ANION GAP 11 (8-16); BILIRUBIN,TOTAL 0.6 MG/DL (0.1-1.0); BLOOD UREA NITROGEN 41 MG/DL (7-18); BUN/CREATININE RATIO 21.2 (6.6-38.0); CALCIUM 8.2 MG/DL (8.5-10.1); CHLORIDE 113 MMOL/L (99-107); CREATININE 1.93 MG/DL (0.40-0.90); GLUCOSE 392 MG/DL (70-104); MAGNESIUM 2.6 MG/DL (1.5-2.4); PHOSPHORUS 4.5 MG/DL (2.3-4.5); POTASSIUM 5.3 MMOL/L (3.5-5.1); SODIUM 149 MMOL/L (135-145); TOTAL CARBON DIOXIDE 25.1 MMOL/L (24-32); TOTAL PROTEIN 5.8 G/DL (6.4-8.2); eGFR 25 ML/MIN
[2021-02-25 05:14] LABS: ALANINE AMINOTRANSFERASE 2576 U/L (12-78); ASPARTATE AMINO TRANSFERASE > 7000 U/L (10-37)
[2021-02-25] MEDS: heparin, porcine 5000 units/ml vial SQ SCH ×3 (08:00→20:25)
[2021-02-25] MEDS: docusate sodium 100mg/10ml UD cup PO SCH ×2 (08:00→20:32)
[2021-02-25] MEDS: K, MAG and/or Phos replacement - Verify level? MC SCH (08:00)
[2021-02-25] MEDS: Insulin Reg/NS 100units/100mL 100 ML IV SCH ×2 (08:14→22:52)
[2021-02-25] MEDS: lactobacillus rhamnosus 10,000 MMU CELLS/CAPSULE PO SCH ×2 (09:06→20:24)
[2021-02-25] MEDS: piperacillin/tazo 3.375gm/50ml 50 ML IV SCH ×2 (09:06→16:08)
[2021-02-25] MEDS: pantoprazole 40 MG vial IV SCH (09:07)
[2021-02-25] MEDS: furosemide 40mg/4ml inj IV SCH (09:07)
[2021-02-25] MEDS: methylPREDNISolone sod succ 125mg/2ml vial IV SCH ×2 (09:07→16:08)
[2021-02-25] MEDS: normal saline 1000ml 1,000 ML IV SCH ×2 (09:10→22:30)
[2021-02-25] MEDS ORDERED: furosemide inj 1,000 MG in normal saline 250ml IV soln 150 ML IV SCH (09:50)
--- NOTE | 2021-02-25 09:52 | NUR ---
Reassessment: Pt remains intubated and tolerating TF at goal rate with GRV WNL. Noted pt with hx T2DM though no A1c in EMR, recommend obtaining A1c to determine need for DM education once stable following extubation given elevated BG levels throughout LOS, will d/w . GEORGE 02/20, documented as constipated with a distended abdomen. Pt receiving routine Colace and Senna-S and received first dose of PRN MoM 02/23. Pt also received one time dose of Mag Citrate 02/24 per EMR. No changes to nutrition recommendations at this time. Will continue to follow. Recommendations: 1. Continuous TF via OGT using Vital High Protein at 65 mL/hr providing 1560 mL total volume/day, 1560 kcal, 136 g protein, and 1310 mL water 2. Additional 100 mL water flush Q4H; monitor serum Na and need to adjust 3. PALB q /; daily scaled wt 4. Routine bowel care 5. Upon extubation, advance to CHO controlled diet as medically indicated if BG levels remain elevated 6. Obtain A1c given pt with h/o T2DM with elevated BG levels throughout LOS and no A1c in EMR Addendum: 02/25/21 at [address] Amended: Links added.
[2021-02-25] MEDS: DOBUTamine-DoBUTrex 500mg/D5W 250 ML IV SCH (10:21)
[2021-02-25 11:22] LABS: ALBUMIN 2.7 G/DL (3.4-5.0); ALBUMIN/GLOBULIN RATIO 0.7 (1.1-1.5); ALKALINE PHOSPHATASE 162 IU/L (46-116); ANION GAP 12 (8-16); BILIRUBIN,TOTAL 0.6 MG/DL (0.1-1.0); BLOOD UREA NITROGEN 53 MG/DL (7-18); BUN/CREATININE RATIO 26.4 (6.6-38.0); CALCIUM 8.7 MG/DL (8.5-10.1); CHLORIDE 114 MMOL/L (99-107); CREATININE 2.01 MG/DL (0.40-0.90); GLUCOSE 364 MG/DL (70-104); PHOSPHORUS 4.1 MG/DL (2.3-4.5); POTASSIUM 4.4 MMOL/L (3.5-5.1); SODIUM 149 MMOL/L (135-145); TOTAL CARBON DIOXIDE 22.9 MMOL/L (24-32); TOTAL PROTEIN 6.4 G/DL (6.4-8.2); eGFR 24 ML/MIN
[2021-02-25 11:31] LABS: ALANINE AMINOTRANSFERASE 2794 U/L (12-78)
[2021-02-25 11:40] LABS: ASPARTATE AMINO TRANSFERASE > 7000 U/L (10-37)
[2021-02-25] MEDS ORDERED: LIDOcaine 1% (10mg/ml)w/preservative injection 20ml MDV ONE (13:40)
[2021-02-25] MEDS ORDERED: NORepinephrine 1 mg/ml inj IV ONE (13:41)
[2021-02-25] MEDS ORDERED: vancomycin/NS 1 GM ADD-VANTAGE 250 ML X 1 DOSE IV SCH (15:00)
[2021-02-25] MEDS: FENTANYL-0.9 % NACL/PF 100 ML IV PRN (16:09)
[2021-02-25 16:10] LABS: LYMPHOCYTES,BODY FLUID 21 %; NEUTROPHILS,BODY FLUID 79 %
[2021-02-25 16:11] LABS: BFAPPEAR BLOODY
[2021-02-25 16:12] LABS: BF RBC COUNT 957500 /CU MM; BF WBC COUNT 500 /CU MM (0-1000); BFCOLOR RED; BFVOLUME 550 ML; MONOCYTES,BODY FLUID 0 %
[2021-02-25] MEDS ORDERED: vancomycin inj. 750 MG in normal saline 250ml IV soln 250 ML IV SCH (17:06)
[2021-02-25 17:19] LABS: ALBUMIN 2.6 G/DL (3.4-5.0); ALBUMIN/GLOBULIN RATIO 0.8 (1.1-1.5); ALKALINE PHOSPHATASE 148 IU/L (46-116); ANION GAP 12 (8-16); BILIRUBIN,TOTAL 1.1 MG/DL (0.1-1.0); BLOOD UREA NITROGEN 51 MG/DL (7-18); BUN/CREATININE RATIO 24.4 (6.6-38.0); CHLORIDE 108 MMOL/L (99-107); CREATININE 2.09 MG/DL (0.40-0.90); GLUCOSE 413 MG/DL (70-104); PHOSPHORUS 3.8 MG/DL (2.3-4.5); SODIUM 143 MMOL/L (135-145); TOTAL CARBON DIOXIDE 22.6 MMOL/L (24-32); TOTAL PROTEIN 5.9 G/DL (6.4-8.2); VANCOMYCIN,TROUGH 13.1 UG/ML (6.0-14.0); eGFR 23 ML/MIN
[2021-02-25 17:20] LABS: ALANINE AMINOTRANSFERASE 2784 U/L (12-78)
[2021-02-25] MEDS: NORepinephrine 8mg/ 250ml NS 250 ML IV PRN ×2 (17:32→22:36)
[2021-02-25 17:37] LABS: ASPARTATE AMINO TRANSFERASE 5888 U/L (10-37)
--- NOTE | 2021-02-25 18:30 | NUR ---
Patient in room ICU 2043. I have received report from BRIONNA Heard and had the opportunity to ask questions and assume patient care.
--- NOTE | 2021-02-25 20:17 | NUR ---
Spoke with MD Fatima about patient's Lantus dose now that patient is on an insulin drip. Orders received to increase Lantus to 40 units so that we may start going down on insulin drip.
[2021-02-25] MEDS: vancomycin/NS 1 GM ADD-VANTAGE 250 ML IV SCH (20:23)
[2021-02-25] MEDS: sennosides/docusate sodium tablet PO SCH (20:24)
[2021-02-25] MEDS: insulin glargine (Lantus) pen - multi-dose SQ SCH (20:34)
[2021-02-26] VITALS (24 sets, daily range): BP systolic 87–130; BP diastolic 52–74
[2021-02-26] MEDS: methylPREDNISolone sod succ 125mg/2ml vial IV SCH ×3 (00:09→16:33)
[2021-02-26] MEDS: piperacillin/tazo 3.375gm/50ml 50 ML IV SCH ×3 (00:09→16:33)
[2021-02-26] MEDS ORDERED: NOREPINEPHRINE IV PRN (00:50)
[2021-02-26] MEDS ORDERED: NORMAL SALINE IV PRN (00:50)
[2021-02-26] MEDS: vasopressin inj. 40 UNIT in normal saline 50ml IV soln 38 ML IV SCH ×3 (01:39→20:31)
[2021-02-26] MEDS: NORepinephrine 32 MG in normal saline 250ml IV soln 218 ML IV PRN ×3 (01:46→20:31)
[2021-02-26] MEDS: mineral oil/petrolatum ophthal oint EACHEYE SCH ×4 (01:47→20:30)
[2021-02-26] MEDS: midazolam 100mg in NS 100ml 100 ML IV PRN (02:22)
[2021-02-26] MEDS: FENTANYL-0.9 % NACL/PF 100 ML IV PRN ×2 (02:22→13:08)
[2021-02-26] MEDS: DOBUTamine-DoBUTrex 500mg/D5W 250 ML IV SCH ×3 (02:43→20:29)
[2021-02-26 02:55] LABS: BASOPHILS % (AUTO) 0.1 % (0-1); EOSINOPHILS % (AUTO) 0 % (0-6); HEMATOCRIT 32.3 % (35.0-45.0); HEMOGLOBIN 10.5 g/dl (12.0-16.0); LYMPHOCYTES # (AUTO) 0.1 X10'3 (1.1-4.8); LYMPHOCYTES % (AUTO) 1.2 % (21-51); MEAN CORPUSCULAR HEMOGLOBIN 30.3 PG (27.0-31.0); MEAN CORPUSCULAR HGB CONC 32.6 g/dL (33.0-36.5); MEAN PLATELET VOLUME 10.1 FL (7.4-10.4); MONOCYTES # (AUTO) 0.5 X10'3 (0-0.9); MONOCYTES % (AUTO) 4.5 % (2-12); NEUTROPHILS # (AUTO) 10.6 X10'3 (1.8-7.7); NEUTROPHILS % (AUTO) 94.2 % (42-75); PLATELET COUNT 238 X10'3 (140-440); RED BLOOD COUNT 3.48 X10'6 (4.20-5.60); RED CELL DISTRIBUTION WIDTH 14.5 % (11.5-14.5); WHITE BLOOD COUNT 11.3 X10'3 (4.5-11.0)
[2021-02-26 03:07] LABS: PARTIAL THROMBOPLASTIN TIME 26 SECONDS (22-32)
[2021-02-26 03:20] LABS: ALBUMIN 2.6 G/DL (3.4-5.0); ALBUMIN/GLOBULIN RATIO 0.7 (1.1-1.5); ALKALINE PHOSPHATASE 160 IU/L (46-116); ANION GAP 14 (8-16); BILIRUBIN,TOTAL 0.6 MG/DL (0.1-1.0); BLOOD UREA NITROGEN 64 MG/DL (7-18); BUN/CREATININE RATIO 26.7 (6.6-38.0); CALCIUM 8.6 MG/DL (8.5-10.1); CHLORIDE 114 MMOL/L (99-107); GLUCOSE 122 MG/DL (70-104); MAGNESIUM 2.5 MG/DL (1.5-2.4); PHOSPHORUS 3.2 MG/DL (2.3-4.5); POTASSIUM 4.4 MMOL/L (3.5-5.1); SODIUM 151 MMOL/L (135-145); TOTAL CARBON DIOXIDE 23.4 MMOL/L (24-32); TOTAL PROTEIN 6.1 G/DL (6.4-8.2); eGFR 20 ML/MIN
[2021-02-26] MEDS: ipratropium/albuterol 3ml nebule NEB SCH ×6 (03:29→22:42)
[2021-02-26 03:51] LABS: ABG BASE EXCESS -4.3 mmol/L (-2.0-2.0); ABG HCO3 21.4 mmol/L (22.0-26.0); ABG OXYGEN SATURATION 94.5 % (94-97); ABG PCO2 (T) 43.1 mmHg (32.0-45.0); ABG PO2 (T) 81.4 mmHg (75.0-100.0); ALLEN'S TEST Modified; FCOHb 0.3 % (0.0-3.9); FMetHb 0.2 % (0.0-1.5); PATIENT TEMPERATURE 37.9; PEEP 8 cm H2O; RESPIRATORY RATE 20 b/min; TIDAL VOLUME 450 mL; TOTAL HEMOGLOBIN 11.4 G/dl (12.0-16.0)
[2021-02-26 03:52] LABS: ALANINE AMINOTRANSFERASE 2552 U/L (12-78); ASPARTATE AMINO TRANSFERASE 2742 U/L (10-37)
--- NOTE | 2021-02-26 06:29 | NUR ---
Problems reprioritized. Patient report given, questions answered & plan of care reviewed with BRIONNA Escudero.
[2021-02-26] MEDS: K, MAG and/or Phos replacement - Verify level? MC SCH (08:00)
[2021-02-26] MEDS: heparin, porcine 5000 units/ml vial SQ SCH ×2 (08:26→20:30)
[2021-02-26] MEDS: docusate sodium 100mg/10ml UD cup PO SCH ×2 (08:26→20:30)
[2021-02-26] MEDS: lactobacillus rhamnosus 10,000 MMU CELLS/CAPSULE PO SCH ×2 (08:27→20:30)
[2021-02-26] MEDS: pantoprazole 40 MG vial IV SCH (08:28)
[2021-02-26] MEDS: Insulin Reg/NS 100units/100mL 100 ML IV SCH (11:17)
[2021-02-26 11:24] LABS: ALBUMIN 2.2 G/DL (3.4-5.0); ALBUMIN/GLOBULIN RATIO 0.6 (1.1-1.5); ALKALINE PHOSPHATASE 148 IU/L (46-116); ANION GAP 12 (8-16); BILIRUBIN,TOTAL 0.8 MG/DL (0.1-1.0); BLOOD UREA NITROGEN 71 MG/DL (7-18); BUN/CREATININE RATIO 26.4 (6.6-38.0); CHLORIDE 110 MMOL/L (99-107); CREATININE 2.69 MG/DL (0.40-0.90); GLUCOSE 329 MG/DL (70-104); POTASSIUM 4.7 MMOL/L (3.5-5.1); SODIUM 143 MMOL/L (135-145); TOTAL CARBON DIOXIDE 21.4 MMOL/L (24-32); TOTAL PROTEIN 5.6 G/DL (6.4-8.2); eGFR 17 ML/MIN
[2021-02-26 11:28] LABS: ALANINE AMINOTRANSFERASE 2136 U/L (12-78); ASPARTATE AMINO TRANSFERASE 1713 U/L (10-37)
[2021-02-26] MEDS: normal saline 1000ml 1,000 ML IV SCH (11:50)
[2021-02-26] MEDS ORDERED: VANCOMYCIN LEVEL IV ONE (16:30)
[2021-02-26] MEDS: vancomycin/NS 1 GM ADD-VANTAGE 250 ML IV SCH (16:36)
[2021-02-26 17:18] LABS: ALBUMIN 2.2 G/DL (3.4-5.0); ALBUMIN/GLOBULIN RATIO 0.6 (1.1-1.5); ALKALINE PHOSPHATASE 140 IU/L (46-116); ANION GAP 12 (8-16); BILIRUBIN,TOTAL 0.9 MG/DL (0.1-1.0); BLOOD UREA NITROGEN 79 MG/DL (7-18); BUN/CREATININE RATIO 26.6 (6.6-38.0); CALCIUM 7.5 MG/DL (8.5-10.1); CHLORIDE 111 MMOL/L (99-107); CREATININE 2.97 MG/DL (0.40-0.90); GLUCOSE 276 MG/DL (70-104); POTASSIUM 4.7 MMOL/L (3.5-5.1); SODIUM 145 MMOL/L (135-145); TOTAL CARBON DIOXIDE 22.3 MMOL/L (24-32); TOTAL PROTEIN 5.7 G/DL (6.4-8.2); eGFR 15 ML/MIN
[2021-02-26 17:19] LABS: ALANINE AMINOTRANSFERASE 2018 U/L (12-78); ASPARTATE AMINO TRANSFERASE 1348 U/L (10-37)
[2021-02-26 17:30] LABS: VANCOMYCIN,TROUGH 19.6 UG/ML (6.0-14.0)
--- NOTE | 2021-02-26 18:13 | NUR ---
Problems reprioritized. Patient report given, questions answered & plan of care reviewed with BRIONNA Valerio.
--- NOTE | 2021-02-26 18:26 | NUR ---
I have received report and assumed care of pt, pt resting in bed, rise and fall of chest cavity equile and symmetrical. Vasopressin, Levophed and dobutamine in place for blood pressure support titrating to keep map greater then 60 via CVL. Fentanyl in place for pain control and versed in place for sedation, assessment complete.
[2021-02-26] MEDS: sennosides/docusate sodium tablet PO SCH (20:30)
[2021-02-26] MEDS: insulin glargine (Lantus) pen - multi-dose SQ SCH (21:29)
[2021-02-27] VITALS (16 sets, daily range): BP systolic 79–101; BP diastolic 46–64
[2021-02-27] MEDS: methylPREDNISolone sod succ 125mg/2ml vial IV SCH ×2 (00:45→07:52)
[2021-02-27] MEDS: piperacillin/tazo 3.375gm/50ml 50 ML IV SCH ×2 (00:45→07:52)
[2021-02-27] MEDS: Insulin Reg/NS 100units/100mL 100 ML IV SCH ×2 (00:46→03:56)
[2021-02-27] MEDS: normal saline 1000ml 1,000 ML IV SCH (01:10)
[2021-02-27] MEDS: mineral oil/petrolatum ophthal oint EACHEYE SCH ×2 (02:14→08:00)
[2021-02-27] MEDS: FENTANYL-0.9 % NACL/PF 100 ML IV PRN (02:14)
[2021-02-27] MEDS: ipratropium/albuterol 3ml nebule NEB SCH ×3 (03:01→10:46)
[2021-02-27] MEDS: NORepinephrine 32 MG in normal saline 250ml IV soln 218 ML IV PRN ×2 (03:14→11:53)
[2021-02-27] MEDS: acetaminophen 325mg tablet PO PRN (03:14)
[2021-02-27 03:15] LABS: BASOPHILS % (AUTO) 0.2 % (0-1); EOSINOPHILS % (AUTO) 0 % (0-6); LYMPHOCYTES # (AUTO) 0.2 X10'3 (1.1-4.8); LYMPHOCYTES % (AUTO) 1.4 % (21-51); MEAN CORPUSCULAR HEMOGLOBIN 30.2 PG (27.0-31.0); MEAN CORPUSCULAR HGB CONC 32.4 g/dL (33.0-36.5); MEAN CORPUSCULAR VOLUME 93.2 FL (78-98); MEAN PLATELET VOLUME 10.4 FL (7.4-10.4); MONOCYTES # (AUTO) 0.6 X10'3 (0-0.9); MONOCYTES % (AUTO) 4.1 % (2-12); NEUTROPHILS % (AUTO) 94.3 % (42-75); PLATELET COUNT 239 X10'3 (140-440); RED BLOOD COUNT 3.32 X10'6 (4.20-5.60); RED CELL DISTRIBUTION WIDTH 14.5 % (11.5-14.5); WHITE BLOOD COUNT 13.8 X10'3 (4.5-11.0)
[2021-02-27 03:17] LABS: ABG BASE EXCESS -5.7 mmol/L (-2.0-2.0); ABG HCO3 20.2 mmol/L (22.0-26.0); ABG OXYGEN SATURATION 90.8 % (94-97); ABG PCO2 (T) 44.2 mmHg (32.0-45.0); ABG PO2 (T) 70.5 mmHg (75.0-100.0); ALLEN'S TEST Modified; FCOHb 0.3 % (0.0-3.9); FMetHb 0.3 % (0.0-1.5); FO2Hb 90.3 % (94-97); PATIENT TEMPERATURE 38.7; PEEP 8 cm H2O; RESPIRATORY RATE 20 b/min; TIDAL VOLUME 450 mL; TOTAL HEMOGLOBIN 11.1 G/dl (12.0-16.0)
[2021-02-27 03:30] LABS: PARTIAL THROMBOPLASTIN TIME 23 SECONDS (22-32)
[2021-02-27 03:57] LABS: ALBUMIN 2.3 G/DL (3.4-5.0); ALBUMIN/GLOBULIN RATIO 0.6 (1.1-1.5); ALKALINE PHOSPHATASE 120 IU/L (46-116); ANION GAP 14 (8-16); BILIRUBIN,TOTAL 0.6 MG/DL (0.1-1.0); BLOOD UREA NITROGEN 96 MG/DL (7-18); BUN/CREATININE RATIO 27.8 (6.6-38.0); CALCIUM 8.2 MG/DL (8.5-10.1); CHLORIDE 108 MMOL/L (99-107); CREATININE 3.45 MG/DL (0.40-0.90); GLUCOSE 121 MG/DL (70-104); MAGNESIUM 2.4 MG/DL (1.5-2.4); PHOSPHORUS 4.3 MG/DL (2.3-4.5); POTASSIUM 4.8 MMOL/L (3.5-5.1); PREALBUMIN 12.3 MG/DL (19-36); SODIUM 145 MMOL/L (135-145); TOTAL CARBON DIOXIDE 23.1 MMOL/L (24-32); eGFR 13 ML/MIN
[2021-02-27 04:06] LABS: ASPARTATE AMINO TRANSFERASE 1040 U/L (10-37)
[2021-02-27 04:25] LABS: ALANINE AMINOTRANSFERASE 1836 U/L (12-78)
--- NOTE | 2021-02-27 06:31 | NUR ---
report given to rec rn plan of care reviewed
--- NOTE | 2021-02-27 06:32 | NUR ---
Patient in room ICU 2043. I have received report from BRIONNA Valerio and had the opportunity to ask questions and assume patient care.
[2021-02-27] MEDS ORDERED: vancomycin/NS 1 GM ADD-VANTAGE 250 ML IV PRN (07:40)
[2021-02-27] MEDS ORDERED: VANCOMYCIN LEVEL IV SCH (07:43)
[2021-02-27] MEDS: lactobacillus rhamnosus 10,000 MMU CELLS/CAPSULE PO SCH (07:52)
[2021-02-27] MEDS: pantoprazole 40 MG vial IV SCH (07:52)
[2021-02-27] MEDS: heparin, porcine 5000 units/ml vial SQ SCH (07:53)
[2021-02-27] MEDS: docusate sodium 100mg/10ml UD cup PO SCH (08:00)
[2021-02-27] MEDS: DOBUTamine-DoBUTrex 500mg/D5W 250 ML IV SCH (13:35)
--- NOTE | 2021-02-27 14:50 | NUR ---
Pt extubated to comfort care.
--- NOTE | 2021-02-27 15:40 | NUR ---
RN IS TO DOCUMENT YES TO ALL APPLICABLE AREAS Pronouncement of : 1. Time Physician Notified: 1530 2. Date of : 02/27/2021 3. Time of : 1520 4. DNR/Withdraw life support documented:Y 5. Monitor strip has been placed on chart:Y 6. Assessment process is of one-minute duration and includes following criteria: a) Patient is unresponsive to all stimuli: Y b) Pupils fixed and non-reactive:Y c) Auscultation of precordium reveals absence of heart tones:Y d) Auscultation of lungs reveals absence of breath sounds:Y e) Absence of blood pressure / all vital signs:y f) QRS complexes are not present on monitor / EKG strip: Y g) Pacer spikes without capture: Y 4. Comments: Dr Matthews notified, [employer] rep sent to turn off pacer/ AICD
== END 2021-02-27 19:28 | DRG 207 ==
LOC: ER 05:04 → ED HOLD 12:09 → ICU 2S 15:00
PROVIDERS: ADMIT Surgery Surgical Critical Care; ATTEND Surgery Surgical Critical Care
PROC: 5A1955Z Respiratory Ventilation, Greater than 96 Consecutive Hours (ICD-10-PCS; principal; 2021-02-21)
PROC: 0BH17EZ Insertion of Endotracheal Airway into Trachea, Via Natural or Artificial Opening (ICD-10-PCS; 2021-02-21)
PROC: 06HY33Z Insertion of Infusion Device into Lower Vein, Percutaneous Approach (ICD-10-PCS; 2021-02-21)
PROC: 02HV33Z Insertion of Infusion Device into Superior Vena Cava, Percutaneous Approach (ICD-10-PCS; 2021-02-24)
PROC: B548ZZA Ultrasonography of Superior Vena Cava, Guidance (ICD-10-PCS; 2021-02-24)
PROC: 0W9D30Z Drainage of Pericardial Cavity with Drainage Device, Percutaneous Approach (ICD-10-PCS; 2021-02-25)
PROC: B24CZZ4 Ultrasonography of Pericardium, Transesophageal (ICD-10-PCS; 2021-02-25)
DX: J96.00 Acute respiratory failure, unspecified whether with hypoxia or hypercapnia (principal); J18.9 Pneumonia, unspecified organism; I21.4 Non-ST elevation (NSTEMI) myocardial infarction; J44.1 Chronic obstructive pulmonary disease with (acute) exacerbation; N17.9 Acute kidney failure, unspecified; I31.3 Pericardial effusion (noninflammatory); I42.9 Cardiomyopathy, unspecified; I13.0 Hypertensive heart and chronic kidney disease with heart failure and stage 1 through stage 4 chronic kidney disease, or unspecified chronic kidney disease; J44.0 Chronic obstructive pulmonary disease with (acute) lower respiratory infection; R57.9 Shock, unspecified; I50.9 Heart failure, unspecified; E11.22 Type 2 diabetes mellitus with diabetic chronic kidney disease; Z66 Do not resuscitate; E87.5 Hyperkalemia; N18.9 Chronic kidney disease, unspecified; E11.65 Type 2 diabetes mellitus with hyperglycemia; Z20.822 Contact with and (suspected) exposure to COVID-19; E78.5 Hyperlipidemia, unspecified; R23.0 Cyanosis; F17.210 Nicotine dependence, cigarettes, uncomplicated; G47.33 Obstructive sleep apnea (adult) (pediatric); I48.91 Unspecified atrial fibrillation; Z51.5 Encounter for palliative care; Z95.810 Presence of automatic (implantable) cardiac defibrillator; Z79.84 Long term (current) use of oral hypoglycemic drugs; Z88.5 Allergy status to narcotic agent; Z79.899 Other long term (current) drug therapy
CPT/HCPCS: 31500; 33016; 36415; 36573; 36600; 70450; 71045; 80053; 80069; 80202; 82803; 82948; 83605; 83735; 83880; 83986; 84100; 84134; 84145; 84478; 84484; 85018; 85025; 85379; 85384; 85610; 85730; 87040; 87070; 87081; 87088; 87635; 88108; 88305; 89051; 93005; 93306; 93308; 93312; 94002; 94003; 94640; 94760; 94799; 96372; 96374; 96375; 96376; 99291; 99292; A6258; C1894; C9113; C9803; G0378; J0696; J1250; J1644; J1815; J1940; J2001; J2250; J2370; J2543; J2704; J2930; J3010; J3370; J3475; J3480; J3490; J7030; J7050; P9045; P9047